=== PATIENT | male | born 1985 | race Caucasian/White ===

== ENCOUNTER 2024-12-07 10:17 | Inpatient (IN) | payer OTHER ==
[2024-12-07 10:48] VITALS: BMI 25.3
[2024-12-07] MEDS ORDERED: POLYETHYLENE GLYCOL (HEALTHYLAX) 3350 17 GM PACKET PO PRN (10:54)
[2024-12-07] MEDS ORDERED: LOPERAMIDE HCL 2 MG CAPSULE PO PRN (10:54)
[2024-12-07] MEDS ORDERED: guaiFENesin 600 MG TABLET.ER (FP) PO PRN (10:54)
[2024-12-07] MEDS ORDERED: NALOXONE (NARCAN) HCL 4 MG/0.1 ML SPRAY NS PRN (10:54)
[2024-12-07] MEDS ORDERED: IBUPROFEN 600 MG TABLET (FP) PO PRN (10:54)
[2024-12-07] MEDS ORDERED: BENZOCAINE/MENTHOL (CHLORASEPTIC ) LOZENGE MM PRN (10:54)
[2024-12-07] MEDS ORDERED: BENZONATATE 200 MG CAPSULE PO PRN (10:54)
[2024-12-07] MEDS: PRENATAL VITAMINS W/ FOLIC ACID TABLET (FP) PO SCH (13:08)
[2024-12-07] MEDS: ESCITALOPRAM OXALATE 10 MG TABLET PO SCH (13:40)
[2024-12-07] MEDS: hydrOXYzine PAMOATE 25 MG CAPSULE (FP) PO PRN (13:41)
[2024-12-07] MEDS ORDERED: TUBERCULIN PPD 5 TU/0.1ML VIAL ID ONE (14:31)
[2024-12-07] MEDS: ELVITEG/COB/EMTRI/TENOF (GENVOYA) TABLET PO SCH (14:38)
[2024-12-07] MEDS: TUBERCULIN PPD 5 TU/0.1ML SYRINGE (IN PATIENT USE ONLY) ID ONE (14:39)
[2024-12-07] MEDS: MELATONIN 5 MG TABLETS PO SCH (21:48)
[2024-12-07] MEDS: THIAMINE 100 MG TABLET PO SCH (21:48)
[2024-12-07] MEDS: MAG HYDROX/AL HYDROX/SIMETH 30 ML UNIT-DOSE CUP PO PRN (21:48)
[2024-12-08 11:20] LABS: HEMATOCRIT 45.6 % (40.1-51.0); HEMOGLOBIN 14.1 g/dL (13.7-17.5); MCHC 30.9 g/dl (32.3-36.5); MEAN CELL VOLUME 91.6 fl (79.0-92.2); MEAN PLT VOLUME 10.8 fl (9.4-12.4); PLATELET COUNT 248 x10^3/uL (163-337)
[2024-12-08 11:25] LABS: PH,URINE 5.5 (5.0-8.0); URINE APPEARANCE CLEAR; URINE BILIRUBIN NEGATIVE (NEGATIVE); URINE COLOR YELLOW; URINE GLUCOSE (UA) NEGATIVE (NEGATIVE); URINE KETONE NEGATIVE (NEGATIVE); URINE LEUK ESTERASE NEGATIVE (NEGATIVE); URINE NITRITE NEGATIVE (NEGATIVE); URINE PROTEIN NEGATIVE (NEGATIVE); URINE UROBILINOGEN 0.2 mg/dL (0.2-1.0)
[2024-12-08 11:28] LABS: POTASSIUM 4.1 mmol/L (3.5-5.1)
[2024-12-08 11:51] LABS: SYPHILIS W/ RPR CONF REACTIVE (NONREACTIVE)
[2024-12-08 12:16] LABS: HCV DIAGNOSTIC IN-HOUSE W/RFLX NON-REACTIVE (NONREACTIVE)
[2024-12-08 12:22] LABS: CALCIUM 9.2 mg/dL (8.5-10.1)
[2024-12-08 12:23] LABS: ALBUMIN 3.4 g/dl (3.4-5.0); BLOOD UREA NITROGEN 15.5 mg/dL (7-18)
[2024-12-08 12:27] LABS: BILIRUBIN,TOTAL 0.4 mg/dL (0.2-1); TOT PROT 6.1 g/dl (6.4-8.2)
[2024-12-08] MEDS: PANTOPRAZOLE 40 MG TABLET PO SCH (12:31)
[2024-12-08] MEDS: MAGNESIUM HYDROX 2400MG/30ML ORAL SUSPENSION 30 ML CUP PO PRN (21:08)
[2024-12-10] MEDS: NALTREXONE HCL 50 MG TABLET PO ONE (15:51)
[2024-12-10] MEDS: SIMETHICONE 80 MG TAB.CHEW (FP) PO PRN (21:19)
[2024-12-11] MEDS: NALTREXONE HCL 50 MG TABLET PO SCH (10:03)
[2024-12-12] MEDS: IBUPROFEN 400 MG TABLET (FP) PO PRN (15:43)
[2024-12-12] MEDS: ACETAMINOPHEN 325 MG TABLET (FP) PO PRN (21:26)
[2024-12-13 06:34] VITALS: BP 105/72; PULSE 66; RESP 16; TEMP 97.3
[2024-12-20] MEDS ORDERED: NALTREXONE MICROSPHERES (VIVITROL) 380 MG DISP.SYRIN IM ONE (10:00)
== END 2024-12-13 11:02 | disposition home or self-care (01) | DRG 772 ==
LOC: SUATTDRO 10:17 → YASAS 10:17 → Y3E 11:43
PROVIDERS: ADMIT Psychiatry & Neurology Pain Medicine; ATTEND Psychiatry & Neurology Pain Medicine
PROC: HZ42ZZZ Group Counseling for Substance Abuse Treatment, Cognitive-Behavioral (ICD-10-PCS; principal; 2024-12-07)
DX: F10.20 Alcohol dependence, uncomplicated (principal); F14.20 Cocaine dependence, uncomplicated; F15.20 Other stimulant dependence, uncomplicated; F41.9 Anxiety disorder, unspecified; F32.A Depression, unspecified; Z21 Asymptomatic human immunodeficiency virus [HIV] infection status; K21.9 Gastro-esophageal reflux disease without esophagitis; Z87.891 Personal history of nicotine dependence; Z79.899 Other long term (current) drug therapy
CPT/HCPCS: 36415; 80053; 80305; 80307; 81003; 85027; 86593; 86780; 86803; 87811; 93005; 93010